=== PATIENT | male | born 1950 | race Caucasian/White ===

== ENCOUNTER → 2019-01-24 15:15 | Outpatient (CLI) | payer MEDICARE, SELFPAY ==
--- NOTE | 2019-01-24 15:22 | CT_ITS ---
CT lung screening EXAM: CT LUNG LOW DOSE WO CONTRAST HISTORY: 50 pack-year smoking history, asymptomatic for lung cancer ITS.REASON: H/O NICOTINE DEPENDENCE ORDERING PHYSICIAN: Armani López MD PATIENT AGE: 68 years COMPARISON: None TECHNIQUE: The exam was performed on a GE Light Speed [address] scanner using 2.90 mGy CTDI. A low dose helical CT CHEST was performed on a multi-detector scanner. All CT scans at the facility use one or more dose reduction, viz: automated exposure control, ma/kV adjustment per patient size (including targeted exams where dose is matched to indication, i.e. head), or iterative reconstruction technique. The LDCT was performed in a facility that meets the criteria for the screening program. Data regarding this exam was submitted to ACR which is an approved registry. The order for this exam indicates that it came as a result of a lung cancer screening counseling shard decision-making visit that included all the elements required of such a visit including smoking cessation. The radiologist interpreting this exam meets the CMS criteria for the LDCT lung cancer screening program. The exam is reported using the Lung-RADS classification scale and reported to the ACR registry. NOTE: This study was performed for the specific purposes of lung cancer screening and is not an alternative to diagnostic chest CT. RADIATION DOSE: CTDI vol(CT dose Index-volume) = 2.90mG DLP (Dose Length Product) = 118.2 mGcm FINDINGS: Centrilobular emphysema with scattered areas of scarring. Calcified nodule right lower lobe medially. Mild coronary artery calcification. Bilateral renal cysts IMPRESSION: 1. Lung RADS Category: 2, benign 2. Other findings: Centrilobular emphysema, coronary artery calcification, RECOMMENDATIONS: 12 month LDCT follow-up
== END ==
PROVIDERS: PCP Family Medicine; Visit Provider Family Medicine
DX: Z12.2 Encounter for screening for malignant neoplasm of respiratory organs (principal); Z87.891 Personal history of nicotine dependence

== ENCOUNTER → 2019-02-19 10:06 | Outpatient (POV) | payer MEDICARE, SELFPAY | PROVIDERS: Visit Provider Dermatology | DX: Z00.00 Encounter for general adult medical examination without abnormal findings (principal) ==

== ENCOUNTER → 2019-04-30 08:56 | Outpatient (POV) | payer MEDICARE, SELFPAY ==
[2019-04-30 11:54] LABS: Ferritin 530 ng/mL (8-388); Free T4 (Free Thyroxine) 0.91 ng/dl (0.76-1.46)
[2019-05-02 08:19] LABS: Thyroid Peroxidase Antibodies <6 IU/mL (0-34); Vitamin B12 639 pg/mL (232-1245); Vitamin D 25 Hydroxy 33.6 ng/mL (30.0-100.0)
[2019-05-02 08:22] LABS: Zinc 116 ug/dL (56-134)
== END ==
PROVIDERS: Visit Provider Dermatology
DX: L65.9 Nonscarring hair loss, unspecified (principal); Z79.899 Other long term (current) drug therapy
CPT/HCPCS: 36415; 82607; 82652; 82728; 84439; 84630; 86376

== ENCOUNTER → 2019-11-20 10:54 | Outpatient (CLI) | payer MEDICARE, SELFPAY ==
--- NOTE | 2019-11-20 10:59 | XR_ITS ---
PROCEDURE: XR KUB CLINICAL INDICATION: RT FLANK PAIN Pain COMPARISON: XR LUMBAR SPINE MIN 4V from 11/20/2019 FINDINGS: Bowel gas pattern is nonspecific. There is a 3 mm calcific density inferior to the right SI joint. This could be due to phleboliths or a ureteral calculus. Faint density is present in the left pelvis which may be due to phleboliths. No obvious renal calculi. IMPRESSION: Right-sided pelvic calcification which could be due to phleboliths or a ureteral calculus Dictated by: Odilon Orta MD 11/20/2019 13:57 Electronically signed by Odilon Orta MD in [place] 11/20/2019 13:57
--- NOTE | 2019-11-20 10:59 | XR_ITS ---
PROCEDURE: XR LUMBAR SPINE MIN 4V CLINICAL INDICATION: LBP WITH LT SCIATICA Low back pain with left-sided sciatica COMPARISON: No exams were available for comparison FINDINGS: Normal alignment. No fracture or dislocation. There is slight decrease in the disc space L2-S1 with small anterior osteophytes consistent mild degenerative disc disease. IMPRESSION: Mild degenerative changes, no acute finding. Dictated by: Odilon Orta MD 11/20/2019 13:51 Electronically signed by Odilon Orta MD in [facility] 11/20/2019 13:51
== END ==
PROVIDERS: PCP Family Medicine; Visit Provider Family Medicine
DX: R10.9 Unspecified abdominal pain (principal); R31.29 Other microscopic hematuria; M54.42 Lumbago with sciatica, left side
CPT/HCPCS: 72110; 74018

== ENCOUNTER → 2020-01-13 07:39 | Outpatient (CLI) | payer MEDICARE, SELFPAY ==
--- NOTE | 2020-01-13 07:43 | CT_ITS ---
PROCEDURE: CT ABDOMEN PELVIS WO CON CLINICAL INDICATION: RT FLANK PAIN, MICRO HEMATURIA The COMPARISON: LUNGSCREEN CT lung screening from 01/24/2019 TECHNIQUE: Axial images obtained with sagittal and coronal reformats. All CT scans at the facility use one or more dose reduction, viz: automated exposure control, ma/kV adjustment per patient size (including targeted exams where dose is matched to indication, i.e. head), or iterative reconstruction technique. FINDINGS: LOWER THORAX: Centrilobular emphysematous changes are present in the lung bases with some scarring. Calcified granuloma is present in the right lung base. ABDOMEN & PELVIS: Liver, gallbladder, adrenal glands, and pancreas have an unremarkable appearance. There is an indeterminate area of decreased attenuation within the anterior and superior aspect of the spleen area this measures approximately 1.8 cm and could represent splenic cyst. Stability may be confirmed with follow-up. The There are numerous bilateral renal cysts. The largest cyst is in the upper pole of the left kidney lobular in nature measuring 6.7 by 6 cm. There is a small area of increased attenuation within the central aspect of the cyst suggesting a small area of faint calcification at 4.7 mm. Ultrasound is suggested for further evaluation. No renal or ureteral calculi. No hydronephrosis Prostate measures 4.7 cm slightly enlarged. There is mild thickening of the urinary bladder wall. No evidence of appendicitis. There are scattered colonic diverticula with no evidence of diverticulitis. There is some mild stranding of the perinephric renal fat on both sides. This is nonspecific. No acute bony findings. IMPRESSION: 1. Multiple bilateral renal cysts. The largest is in the upper pole on the left at 6.7 cm with suggestion of a small internal septation with possible faint early calcification. Suggest renal ultrasound for further evaluation. 2. Possible splenic cyst. Stability may be confirmed with follow-up and could also be further evaluated with ultrasound Dictated by: Odilon Orta MD 01/13/2020 10:43 Electronically signed by Odilon Orta MD in [place] 01/13/2020 10:43
== END ==
PROVIDERS: PCP Family Medicine; Visit Provider Family Medicine
DX: R10.9 Unspecified abdominal pain (principal); R31.29 Other microscopic hematuria
CPT/HCPCS: 74176

== ENCOUNTER → 2020-01-17 10:58 | Outpatient (CLI) | payer MEDICARE, SELFPAY ==
[2020-01-17 12:23] LABS: Blood Urea Nitrogen 22 mg/dl (9-20); Estimated Glomerular Filt Rate 96 ml/min (>60); GFR (African American) 116 ML/MIN (>60)
== END ==
PROVIDERS: Visit Provider Urology
DX: Z12.5 Encounter for screening for malignant neoplasm of prostate (principal); R31.0 Gross hematuria
CPT/HCPCS: 36415; 82565; 84520; G0103

== ENCOUNTER → 2020-01-22 08:48 | Outpatient (CLI) | payer MEDICARE, SELFPAY ==
--- NOTE | 2020-01-22 08:48 | CT_ITS ---
PROCEDURE: CT ABDOMEN PELVIS WO/W CON CLINICAL INDICATION: gross hematuria Gross hematuria, renal mass, complex renal cyst COMPARISON: LUNGSCREEN CT lung screening from 01/24/2019 CT ABDOMEN PELVIS WO CON from 01/13/2020 TECHNIQUE: IV Contrast: 75ML OPTIRAY 350 Oral Contrast none Axial images obtained with sagittal and coronal reformats. All CT scans at the facility use one or more dose reduction, viz: automated exposure control, ma/kV adjustment per patient size (including targeted exams where dose is matched to indication, i.e. head), or iterative reconstruction technique. FINDINGS: LOWER THORAX: Centrilobular emphysematous changes ABDOMEN & PELVIS: The liver gallbladder and pancreas have an unremarkable appearance. There is some minimal nodularity of the right adrenal gland nonspecific and may be adenomatous in nature. There is a well-circumscribed area of decreased attenuation in the anterior aspect of the spleen measuring 2 cm consistent with a splenic cyst. The spleen is otherwise unremarkable. There are bilateral renal cysts with a simple appearing right renal cyst anteriorly at 3.2 cm. In the upper pole of the left kidney there is a complex appearing cyst which measures 6.7 cm transverse, 5 cm cephalad caudad, and 6.5 cm AP. This does contain a small thin septation with some minimal calcification but no significant enhancement. There is an additional exophytic cyst of the left kidney anterior laterally at 1.8 cm and 1 also anteriorly at 1.7 cm. No intestinal obstruction or free air. No evidence of appendicitis. There is colonic diverticulosis but no evidence of diverticulitis. The prostate is enlarged at 4.5 cm. There is some minimal thickening of the urinary bladder wall which could be due to incomplete distention. No pelvic mass or abnormal fluid collection is evident. There is some calcification of the seminal vesicles with the left seminal vesicle being larger than the right. No acute bony findings. IMPRESSION: 1. There are multiple bilateral renal cyst as detailed above with the largest cyst in the upper pole left kidney containing a thin septation with minimal calcification and no significant enhancement consistent with a Bosniak grade 2 renal cyst which appears benign. Consider six-month follow-up to confirm stability. 2. Splenic cyst. 3. Colonic diverticulosis without diverticulitis Dictated by: Odilon Orta MD 01/23/2020 10:13 Electronically signed by Odilon Orta MD in [place] 01/23/2020 10:13
== END ==
PROVIDERS: PCP Family Medicine; Visit Provider Urology
DX: R31.0 Gross hematuria (principal)
CPT/HCPCS: 74178; Q9967

== ENCOUNTER → 2020-02-15 09:25 | Outpatient (CLI) | payer MEDICARE, SELFPAY ==
[2020-02-16 16:40] LABS: Covid-19 Nasal PCR Sendout UK NOT DETECTED
== END ==
PROVIDERS: Visit Provider Urology
DX: Z03.818 Encounter for observation for suspected exposure to other biological agents ruled out (principal)
CPT/HCPCS: U0003

== ENCOUNTER 2020-02-17 09:03 | Day surgery (SDC) | payer MEDICARE, SELFPAY ==
--- NOTE | 2020-02-12 09:31 | SUR.PREOP ---
02/12/20 @ 7160--PHONE CALL MADE TO PATIENT. PATIENT UNDERSTANDS THAT LAB WORK AND COVID TESTING NEEDS TO BE COMPLETED @ 0900 ON 02/15/20. PATIENT UNDERSTANDS IF LAB WORK AND COVID-19 TESTS ARE NOT COMPLETED BY 12PM ON THAT DATE, THE SURGERY SCHEDULED WILL BE CANCELLED AND RESCHEDULED FOR ANOTHER TIME.
[2020-02-14 13:30] VITALS: BMI 21.1
[2020-02-17] VITALS (13 sets, daily range): BP systolic 83–134; BP diastolic 52–71; PULSE 65–88; RESP 16–19; TEMP 36.3–43; O2SAT 90–98
--- NOTE | 2020-02-17 09:48 | P.PN_ITS ---
[facility] Anesthesia Checklist - Patient Identification Patient Identification: Arm Band - Structural Data Admitted From: Home Planned Operative Procedure/s: TURBT Consent for Planned Operative Procedure(s) Verified: Yes Verified Documents: Surgical Consent, History and Physical - NPO Status Verified Time NPO: 00:00 - Additional verifications Anesthesia Reactions: No Hx Blood Transfusions: No Blood Transfusion Reaction: No - Airway Assessment C-Spine Mobility Assessed: Yes (mp2) TMJ Mobility Assessed: Yes Dentition: Poor Dentition - Neurological Assessment Level of Consciousness: Awake, Alert - Anesthesia Plan Anesthesia Risk discussed: Yes Anesthesia Plan: Verified ASA Class: II Anesthesia Type: General [facility] History I have reviewed the patient's past medical history: Yes Medical History: Reports:: Hypertension Denies:: Cancer, Diabetes Mellitus Type 1, Diabetes Mellitus Type 2, Internal Pacemaker, Lung Disease, MRSA, Seizures *Have you ever received a pneumonia vaccine?: No *Have you received a flu vaccine this season?: Yes Other Medical History: Reports: Arthritis, Other. Denies: Blood Transfusion Reaction Anesthesia experience/problems:: nac Other Surgeries: Yes: Colonoscopy, Other. No: Pacemaker Amputation: No Fractures: No - *Social History Educational Level: Attended College Smoking Status: Current every day smoker Tobacco Type: cigarettes # Packs/Day (cigarettes): 1 #Yrs smoked (if former smoker): 30 Alcohol Intake: never Alcohol Intake Frequency:: holidays/special occasions only Substance Use Type: denies use, other *Occupational Status:: retired Housing: house Household Members: spouse *Travel in the last 8 weeks: None Family Hx:: Diabetes, Heart Attack
--- NOTE | 2020-02-17 10:42 | P.PN_ITS ---
[facility] Anesthesia Record Part I Intake, IV Amount: 1,000 Estimated blood loss (mL): 0 Urine output (mL): 0 Blood Pressure: 83/52 SaO2: 92 Pulse Rate: 80 Respiratory Rate: 16 Temperature: 97.8 F Patient is:: Drowsy, Stable Stable to PACU at:: 10:35
--- NOTE | 2020-02-17 11:06 | SUR.PHASEI ---
1035: pt to PACU with oral sedate with airway 1050: oral airway removed per/by R D ENGINEER
--- NOTE | 2020-02-17 12:20 | HMH.ANESII ---
[facility] Anesthesia Record Part II Discharge Time: 11:16 Destination: Surgical Day Care (OP Surgery) PACU nurse assessment reviewed?: Yes Patient Condition:: Good Anesthesia Complications:: None Swallowing reflex intact?: Yes Cyanosis?: No Blood Pressure: 110/56 Pulse Rate: 74 Temperature: 97.4 F Mental Status: Alert & Oriented Pain level:: 0 Nausea and/or vomitting:: None Intake, IV Amount: 0
--- NOTE | 2020-02-17 12:55 | P.OP_ITS ---
Date of procedure: 02/17/20 Pre-op Diagnosis:: Bladder tumor Post-op Diagnosis:: 2 cm bladder tumor at the left side of the bladder neck Procedure performed:: Transurethral resection of bladder tumor, 2 cm Surgeon:: Diego Arthur MD NURSE PRACTITIONER MANAGER:: Oswald Combs Anesthesia: GETA Estimated blood loss (mL): 2 Clinical Note:: 9-year-old white male with history of gross hematuria noted to have a papillary lesion at the left side of the bladder neck. Operative findings:: Papillary lesion at the bladder neck noted at 1:00 to 4:00. Operative note:: Patient taken to the operating room after informed consent was obtained. Was placed on the operating table in a supine position and general anesthesia administered. Preoperative antibiotics and sequential compression devices were placed. He was then placed into the dorsal lithotomy position prepped draped in the standard surgical fashion. The [place] cystoscope passed into the urethra and into the bladder without difficulty. The bladder was examined in a systematic fashion. Again of note was the papillary findings at the bladder neck. These appear to be contained just to the bladder neck and not noted anywhere else. Cystoscope removed and our [place] resectoscope sheath passed into the urethra atraumatically. The resectoscope loop was then used to resect the papillary tumor from the bladder neck. Specimen was passed off for analysis and a bed of the tumor was fulgurated with the loop. Scope removed and [place] Bruner catheter was anchored. Patient tolerated procedure well there are no complications. He was discharged to recovery in stable condition. I will send him home with his Bruner catheter due to the possible bleeding and/or swelling from the surgery at the bladder neck. Condition: stable Disposition: same day Specimens:: Bladder tumor Complications:: None
== END 2020-02-17 12:00 | disposition home or self-care (01) ==
LOC: OR 09:05
PROVIDERS: PCP Family Medicine; Visit Provider Urology
PROC: 0TBB8ZZ Excision of Bladder, Via Natural or Artificial Opening Endoscopic (ICD-10-PCS; principal; 2020-02-17 10:30)
DX: C67.5 Malignant neoplasm of bladder neck (principal); I10 Essential (primary) hypertension; Z72.0 Tobacco use; Z88.0 Allergy status to penicillin
CPT/HCPCS: 52234; 88307; 96374; J1956; J2405

== ENCOUNTER 2020-02-18 16:38 | Emergency (ER) | payer MEDICARE, SELFPAY ==
[2020-02-18 16:39] VITALS: BP 119/80; PULSE 88; RESP 20; TEMP 37; O2SAT 95; BMI 21.7
--- NOTE | 2020-02-18 17:41 | PC.NURSE ---
[employer] WORK[employer] PAGING DR CHIN AT THIS TIME
--- NOTE | 2020-02-18 18:05 | HMH.EDUROGM ---
ED Disposition Clinical Impression: Urethritis, Prostatitis, Acute retention of urine Disposition: Home, Self-Care Condition on Discharge: Good Instructions: DI for Urinary Tract Infection (UTI), DI for Urinary Tract Infection in Children Additional Instructions: Follow-up with Dr. Snell at your regular appointment on . Prescriptions: Hyoscyamine Sulfate 0.125 mg PO QID 10 Days #30 tab Prescription Printed Referrals: Armani López MD [Primary Care Provider] - - Critical Care Critical Care Time: No Attestation: On 02/18/20, the high probability of a clinically significant, sudden or life threatening deterioration of the following system(s) required my full and direct attention, intervention and personal management. The time I documented below is in addition to time spent performing reported procedures but includes the following listed in this critical care notation. Medical Decision Making - Kenny Inquiry Pt receiving controlled substance: No Vital Signs: 02/18/20 16:39 Temperature 98.6 F Temperature Source Oral Pulse Rate [Right] 88 Respiratory Rate 20 Blood Pressure [Right Arm] 119/80 Blood Pressure Mean [Right Arm] 93 02 Sat by Pulse Oximetry 95 - Lab Data Lab results reviewed: Yes: I reviewed the patient's lab results. Orders (Tests/Meds): ED MEDICATIONS Generic Name Dose Route Start Last Admin Trade Name Freq PRN Reason Stop Dose Admin Hyoscyamine 0.125 mg 02/18/20 18:12 Levsin 0.125mg Tablet PO 02/18/20 18:13 ONCE ONE Discontinued Medications Generic Name Dose Route Start Last Admin Trade Name Freq PRN Reason Stop Dose Admin Dicyclomine HCl 20 mg 02/18/20 16:51 02/18/20 16:56 Dicyclomine 20mg/2ml Vial IM 02/18/20 16:52 20 mg ONCE ONE Administration Morphine Sulfate 4 mg 02/18/20 16:52 02/18/20 16:56 Morphine 4mg/Ml Syringe IM 02/18/20 16:53 4 mg ONCE ONE Administration Tamsulosin HCl 0.8 mg 02/18/20 21:00 Flomax 0.4mg Capsule PO 03/19/20 20:59 HS ROMI Tamsulosin HCl 0.8 mg 02/18/20 17:00 02/18/20 17:00 Flomax 0.4mg Capsule PO 02/18/20 17:01 0.8 mg HS ONE Administration Male Urogenital HPI - General Chief complaint: Urogenital-Male Stated complaint: Problen with Cath Time Seen by Provider: 02/18/20 18:05 Mode of Arrival: Ambulatory Source of Information: Patient Limitations: No Limitations Description of Symptoms (Recalled from ER Triage Doc. by RN): Bruner placed yesterday per dr snell after removal of bladder cyst and pt has increased pain and leaking around his urethra - History of Present Illness HPI Narrative: 61-year-old male presents the ED after having a biopsy of his bladder yesterday and his main complaint is a lot of suprapubic pain and blood in his catheter. He is also complaining of leakage around the catheter. I spoke to Dr. López his primary care provider and he wanted to get him evaluated here in the ED because he did not have a replacement catheter put in in the office. Here in the ED we did remove the catheter and we were able to get another catheter placed and patient is resting comfortably after some pain medication and also some hyoscyamine, Flomax and morphine. Otherwise patient has no other complaints. - Related Data Home Medications Medication Instructions Recorded Confirmed Aspirin [Aspirin 81mg EC Tab] 81 mg PO DAILY 04/15/19 02/14/20 calcium polycarbophiL [Fiber Tabs] 625 mg PO DAILY 04/15/19 02/14/20 Finasteride 1 mg PO DAILY 02/14/20 02/14/20 Tamsulosin HCl 0.4 mg PO DAILY 02/14/20 02/14/20 Previous Rx's Medication Instructions Recorded Hyoscyamine Sulfate 0.125 mg PO QID 10 Days #30 tab 02/18/20 Allergies Allergy/AdvReac Type Severity Reaction Status Date / Time Penicillins Allergy Unknown Verified 02/13/20 12:52 [facility] History - Hepatitis A Screen Drug use history?: No High risk sexual behaviors?: No History of sexually transmitted i
[2020-02-18 18:30] VITALS: BP 131/83; PULSE 69; RESP 18; TEMP 36.8; O2SAT 97
== END 2020-02-18 18:46 | disposition home or self-care (01) ==
PROVIDERS: Emergency Provider Family Medicine; PCP Family Medicine
DX: N34.2 Other urethritis (principal); N41.9 Inflammatory disease of prostate, unspecified; N32.89 Other specified disorders of bladder; I10 Essential (primary) hypertension; Z88.0 Allergy status to penicillin; F17.210 Nicotine dependence, cigarettes, uncomplicated; Z79.899 Other long term (current) drug therapy
CPT/HCPCS: 96365; 96372; 96375; 99282

== ENCOUNTER → 2020-04-25 09:52 | Outpatient (CLI) | payer MEDICARE, SELFPAY ==
[2020-04-25 11:12] LABS: Chloride 102 mmol/L (98-107); Potassium 4.9 mmoL/L (3.5-5.1); Sodium 141 mmol/L (136-145)
[2020-04-25 11:15] LABS: Blood Urea Nitrogen 18 mg/dl (9-20); Estimated Glomerular Filt Rate 84 ml/min (>60); GFR (African American) 102 ML/MIN (>60)
[2020-04-25 11:16] LABS: Anion Gap 11.9 mEq/L (5-15); Calcium 9.7 mg/dl (8.4-10.2); Carbon Dioxide 32 mmol/L (22.0-30.0); Glucose 87 mg/dl (74-100)
== END ==
PROVIDERS: Visit Provider Family Medicine
DX: I10 Essential (primary) hypertension (principal)
CPT/HCPCS: 36415; 80048

== ENCOUNTER → 2020-09-19 10:17 | Outpatient (CLI) | payer MEDICARE, SELFPAY ==
[2020-09-19 13:09] LABS: Coronavirus 19 IgG Antibody Negative (Negative); Coronavirus 19 IgM Antibody Negative (Negative)
== END ==
PROVIDERS: Visit Provider Urology
DX: Z85.51 Personal history of malignant neoplasm of bladder (principal); Z01.818 Encounter for other preprocedural examination; Z03.818 Encounter for observation for suspected exposure to other biological agents ruled out; R31.9 Hematuria, unspecified
CPT/HCPCS: 36415; 86328

== ENCOUNTER 2020-09-21 08:26 | Day surgery (SDC) | payer MEDICARE, SELFPAY ==
[2020-09-18 15:17] VITALS: BMI 20.3
[2020-09-21 08:42] VITALS: BP 123/88; PULSE 87; RESP 16; TEMP 36.4; O2SAT 94
[2020-09-21 09:23] VITALS: BP 139/77; PULSE 72; RESP 16; TEMP 36.5; O2SAT 94
--- NOTE | 2020-09-21 12:29 | HMH.OPNOTE ---
Date of procedure: 09/21/20 Pre-op Diagnosis:: History of bladder cancer Post-op Diagnosis:: History of bladder cancer Procedure performed:: Surveillance cystoscopy Surgeon:: Diego Arthur MD Anesthesia: local Estimated blood loss (mL): 0 Clinical Note:: Patient is a 70-year-old white male with a history of bladder cancer status post resection back in March 2020. Due to the paul pandemic he did not come in for his 3-month follow-up in June but does follow-up today. He does state gross hematuria for 1-1/2 days few weeks ago after some strenuous activity. He does have a history of BPH. He states that the hematuria was noted at the beginning of his stream and not throughout the stream. Operative findings:: No evidence of recurrent bladder tumor. Operative note:: Patient taken to the cystoscopy room after informed consent was obtained. On the stretcher he was prepped and draped in the standard surgical fashion and 2% lidocaine placed into the urethra and the urethra clamped for 5 minutes. After 5 minutes the clamp was removed and the flexible cystoscope inserted into the urethral meatus and passed to the prostatic urethra without difficulty. Prostatic urethra showed moderate hyperplasia but no evidence of any bleeding nidus. The bladder was entered and examined in a systematic fashion. There is no evidence of recurrent bladder tumors. Small reddish lesion was noted on the right side of the bladder wall. Some mild trabeculation was noted but no stones, diverticula or cellules are present. The ureteral orifices in their normal anatomic position. Scope was retroflexed showing a moderate sized median lobe. Scope then removed. Patient tolerated procedure well there are no complications. We will see him back in 3 months for surveillance cystoscopy. Condition: stable Disposition: same day Specimens:: None Complications:: None
== END 2020-09-21 09:40 | disposition home or self-care (01) ==
LOC: OUTP 08:28
PROVIDERS: PCP Family Medicine; Visit Provider Urology
DX: Z08 Encounter for follow-up examination after completed treatment for malignant neoplasm (principal); N32.9 Bladder disorder, unspecified; Z90.6 Acquired absence of other parts of urinary tract; Z85.51 Personal history of malignant neoplasm of bladder; I10 Essential (primary) hypertension; Z87.442 Personal history of urinary calculi; N40.0 Benign prostatic hyperplasia without lower urinary tract symptoms; Z83.3 Family history of diabetes mellitus; Z82.49 Family history of ischemic heart disease and other diseases of the circulatory system; Z79.82 Long term (current) use of aspirin; Z79.899 Other long term (current) drug therapy
CPT/HCPCS: 52000

== ENCOUNTER → 2020-12-07 09:10 | Outpatient (CLI) | payer MEDICARE, SELFPAY ==
--- NOTE | 2020-12-07 09:15 | US_ITS ---
PROCEDURE: US KIDNEY CLINICAL INDICATION: RENAL CYST, CYST OF SPLEEN COMPARISON: CT CT ABDOMEN PELVIS WO/W CON from 01/22/2020 FINDINGS: The right kidney is [id number]. No hydronephrosis, cortical thinning, or perinephric fluid collection is evident.. There are 3 right renal cysts the largest in the upper pole measuring 3.3 cm. The left kidney is [id number]. No hydronephrosis, cortical thinning, or renal mass or perinephric fluid collection is evident. There is a septated 6 cm cyst involving the left kidney upper pole and a smaller exophytic cyst of the mid aspect of the left kidney anteriorly 17 mm There is a small cystic area along the anterior aspect of the spleen corresponding to the CT abnormality. This measures approximately 12 mm IMPRESSION: Bilateral renal cyst and small left splenic cyst corresponding to the CT abnormalities of 01/22/2020. Dictated by: Odilon Orta MD 12/07/2020 16:31 Odilon Orta MD in [place] 12/07/2020 16:33
== END ==
PROVIDERS: PCP Family Medicine; Visit Provider Family Medicine
DX: D73.4 Cyst of spleen (principal); N28.1 Cyst of kidney, acquired
CPT/HCPCS: 76770

== ENCOUNTER → 2020-12-18 15:56 | Outpatient (CLI) | payer MEDICARE, SELFPAY ==
[2020-12-18 17:37] LABS: Coronavirus 19 IgG Antibody Negative (Negative); Coronavirus 19 IgM Antibody Negative (Negative)
== END ==
PROVIDERS: Visit Provider Urology
DX: C67.9 Malignant neoplasm of bladder, unspecified (principal); Z01.818 Encounter for other preprocedural examination; Z20.822 Contact with and (suspected) exposure to COVID-19
CPT/HCPCS: 36415; 86328

== ENCOUNTER 2020-12-21 08:18 | Day surgery (SDC) | payer MEDICARE, SELFPAY ==
[2020-12-17 12:32] VITALS: BMI 20.3
[2020-12-21 08:34] VITALS: BP 185/89; PULSE 71; RESP 18; TEMP 36.6; O2SAT 97
[2020-12-21 09:30] VITALS: BP 152/96; PULSE 68; RESP 20; TEMP 36.6; O2SAT 96
--- NOTE | 2020-12-21 11:02 | HMH.OPNOTE ---
Date of procedure: 12/21/20 Pre-op Diagnosis:: History of bladder cancer Post-op Diagnosis:: Recurrent bladder cancer Procedure performed:: Surveillance cystoscopy Surgeon:: Diego Arthur MD Anesthesia: local Estimated blood loss (mL): 0 Clinical Note:: Patient is a 70-year-old white male with history of bladder cancer status post TURBT a year ago February. He returns for his 3-month cystoscopy and states he has had some episodes of gross hematuria over the last couple of weeks. Operative findings:: A 2 cm bladder tumor is noted over the right lateral bladder wall. No other mucosal changes were present. There was some mild to moderate trabeculation present. Operative note:: Patient taken to the cystoscopy suite after informed consent was obtained. On the stretcher he was prepped and draped in the standard surgical fashion and 2% lidocaine placed into the urethra and the urethra clamped for 5 minutes. Clamp then removed and the flexible cystoscope was placed into the urethral meatus. Passed to the prostatic urethra which showed some moderate hyperplasia but no bleeding nidus. The bladder was entered and examined in a systematic fashion. There was a 2 cm papillary bladder tumor noted over the right lateral bladder wall. No other bladder tumors were noted. There was some moderate trabeculation noted in the floor the bladder. The ureteral orifices in their normal anatomic position with clear efflux of urine. Bladder neck is within normal limits. Scope removed patient tolerated the procedure well. We discussed the findings today and discussed the need for further TURBT. We will set this up at his earliest convenience. Condition: stable Disposition: same day Specimens:: None Complications:: None
== END 2020-12-21 09:45 | disposition home or self-care (01) ==
LOC: OUTP 08:20
PROVIDERS: PCP Family Medicine; Visit Provider Urology
PROC: (CPT 52000; principal; 2020-12-21 09:00)
DX: D49.4 Neoplasm of unspecified behavior of bladder (principal); N32.89 Other specified disorders of bladder; Z08 Encounter for follow-up examination after completed treatment for malignant neoplasm; Z85.51 Personal history of malignant neoplasm of bladder; I10 Essential (primary) hypertension; Z87.442 Personal history of urinary calculi; Z88.0 Allergy status to penicillin
CPT/HCPCS: 52000

== ENCOUNTER → 2021-01-08 10:30 | Outpatient (CLI) | payer MEDICARE, SELFPAY ==
[2021-01-08 11:04] LABS: Basophils % 0.3 % (0.1-2.0); Eosinophils # 0.3 K/mm3 (0.0-0.4); Eosinophils % 3.8 % (0.1-12.0); Hematocrit 48.6 % (42.0-52.0); Hemoglobin 15.5 g/dL (14.1-18.0); Lymphocytes # 2.3 K/mm3 (0.7-4.5); Lymphocytes % 29.1 % (10-50); Mean Corpuscular Hemoglobin 32.4 pg (27.0-31.2); Mean Corpuscular Volume 101.2 fl (80-94); Mean Platelet Volume 8.1 fl (7.4-10.4); Monocytes # 0.5 K/mm3 (0.1-1.0); Monocytes % 6.8 % (1.7-9.3); Neutrophils # 4.7 K/mm3 (1.8-7.8); Platelet Count 243 K/mm3 (142-424); Red Cell Distribution Width 13.1 % (11.5-17.5); White Blood Count 7.9 K/mm3 (4.8-10.8)
[2021-01-08 11:56] LABS: Anion Gap 11.2 mEq/L (5-15); Blood Urea Nitrogen 14 mg/dl (9-20); Calcium 9.7 mg/dl (8.4-10.2); Carbon Dioxide 30 mmol/L (22.0-30.0); Chloride 104 mmol/L (98-107); Estimated Glomerular Filt Rate 84 ml/min (>60); GFR (African American) 101 ML/MIN (>60); Glucose 122 mg/dl (74-100); Potassium 4.2 mmoL/L (3.5-5.1); Sodium 141 mmol/L (136-145)
[2021-01-08 12:29] LABS: Coronavirus 19 IgG Antibody Negative (Negative); Coronavirus 19 IgM Antibody Negative (Negative)
== END ==
PROVIDERS: Visit Provider Urology
DX: C67.9 Malignant neoplasm of bladder, unspecified (principal)
CPT/HCPCS: 36415; 80048; 85025; 86328

== ENCOUNTER 2021-01-11 09:04 | Day surgery (SDC) | payer MEDICARE, SELFPAY ==
[2021-01-05 09:59] VITALS: BMI 21.1
[2021-01-11] VITALS (10 sets, daily range): BP systolic 92–147; BP diastolic 49–74; PULSE 72–88; RESP 12–20; TEMP 36.2–42.7; O2SAT 92–98
--- NOTE | 2021-01-11 11:34 | P.PN_ITS ---
[facility] Anesthesia Checklist - Structural Data Admitted From: Home Planned Operative Procedure/s: turbt Consent for Planned Operative Procedure(s) Verified: Yes - Additional verifications Anesthesia Reactions: No Hx Blood Transfusions: No Blood Transfusion Reaction: No - Airway Assessment C-Spine Mobility Assessed: Yes TMJ Mobility Assessed: Yes Dentition: Poor Dentition - Neurological Assessment Level of Consciousness: Awake, Alert, Appropriate - Anesthesia Plan Anesthesia Risk discussed: Yes Anesthesia Plan: Verified ASA Class: II Anesthesia Type: General [facility] History I have reviewed the patient's past medical history: Yes Medical History: Reports:: Cancer (bladder), Hypertension, Kidney Stones Denies:: Diabetes Mellitus Type 1, Diabetes Mellitus Type 2, Internal Pacemaker, Lung Disease, MRSA, Seizures *Have you ever received a pneumonia vaccine?: No *Have you received a flu vaccine this season?: No Other Medical History: Reports: Arthritis, Other. Denies: Blood Transfusion Reaction Anesthesia experience/problems:: none Other Surgeries: Yes: No Previous Surgery, Colonoscopy, Other. No: Pacemaker Amputation: No Fractures: No - *Social History Last grade of school completed: Some college Smoking Status: Current every day smoker Tobacco Type: cigarettes # Packs/Day (cigarettes): 1 #Yrs smoked (if former smoker): 30 Alcohol Intake: current Alcohol Intake Frequency:: holidays/special occasions only Substance Use Type: denies use, other *Occupational Status:: retired Housing: house Household Members: spouse *Travel in the last 8 weeks: None Family Hx:: Diabetes, Heart Attack
--- NOTE | 2021-01-11 11:35 | HMH.ANESI ---
[facility] Anesthesia Record Part I Intake, IV Amount: 1,200 Estimated blood loss (mL): 0 Urine output (mL): 0 Blood Pressure: 92/62 SaO2: 98 Pulse Rate: 84 Respiratory Rate: 12 Temperature: 97.7 F Patient is:: Awake, Stable Stable to PACU at:: 11:30
--- NOTE | 2021-01-11 17:47 | HMH.OPNOTE ---
Date of procedure: 01/11/21 Pre-op Diagnosis:: Recurrent bladder cancer Post-op Diagnosis:: Same Procedure performed:: TURBT of 2 cm tumor Surgeon:: Diego Arthur MD STEEL POURER:: Lobo Tadeo Anesthesia: LMA Estimated blood loss (mL): 0 Clinical Note:: Patient is a 70-year-old white male with history of bladder cancer status post initial TURBT February 2020. Recent cystoscopy showed a recurrence on the right side of his bladder and he presents for management. Operative findings:: 2 cm bladder tumor in the right lateral wall at 3:00 near the bladder neck. Operative note:: Patient taken to the operating room after informed consent was obtained. Was placed on the operating table in the supine position and general anesthesia administered. Preoperative antibiotics and sequential compression devices placed. Was placed into the dorsolithotomy position prepped draped in the standard surgical fashion. 22 Romeo passed into the urethra and into the bladder. The bladder was examined in a systematic fashion. Again of note was the 2 cm tumor on the right lateral wall at 9 o'clock position near the bladder neck. The cystoscope removed and the 26 Kinyarwanda resectoscope sheath with cylinder press operator passed into the bladder. The resectoscope and passed through the sheath and the tumor was resected in its entirety and the base of the tumor was fulgurated. The tumor fragments were irrigated free and sent off for analysis. The scope then removed and a 20 Kinyarwanda two-way Bruner placed without difficulty. Patient tolerated the procedure well there are no complications. Voiding trial to be performed in the recovery room prior to discharge. Condition: stable Disposition: PACU Specimens:: Bladder tumor Complications:: None
--- NOTE | 2021-01-12 12:51 | HMH.ANESII ---
[facility] Anesthesia Record Part II Discharge Time: 11:57 Destination: Surgical Day Care (OP Surgery) PACU nurse assessment reviewed?: Yes Patient Condition:: Good Anesthesia Complications:: None Swallowing reflex intact?: Yes Cyanosis?: No Blood Pressure: 111/70 Pulse Rate: 84 Temperature: 97.5 F Mental Status: Alert & Oriented Pain level:: 0 Nausea and/or vomitting:: None Intake, IV Amount: 500
[2021-01-12 12:52] VITALS: BP 111/70; PULSE 84; TEMP 36.4
== END 2021-01-11 12:40 | disposition home or self-care (01) ==
LOC: OR 09:06
PROVIDERS: PCP Family Medicine; Visit Provider Urology
PROC: 0TBB8ZZ Excision of Bladder, Via Natural or Artificial Opening Endoscopic (ICD-10-PCS; CPT 52234; principal; 2021-01-11 10:45)
DX: C67.2 Malignant neoplasm of lateral wall of bladder (principal); Z85.51 Personal history of malignant neoplasm of bladder; I10 Essential (primary) hypertension; Z87.442 Personal history of urinary calculi; M19.90 Unspecified osteoarthritis, unspecified site; Z72.0 Tobacco use; Z83.3 Family history of diabetes mellitus; Z82.3 Family history of stroke; Z79.82 Long term (current) use of aspirin; Z79.899 Other long term (current) drug therapy; Z88.0 Allergy status to penicillin
CPT/HCPCS: 52234; 88307; 96374; J2405

== ENCOUNTER → 2021-01-21 10:11 | Outpatient (CLI) | payer MEDICARE, SELFPAY | PROVIDERS: Visit Provider Urology | DX: N34.2 Other urethritis (principal) | CPT/HCPCS: 87086; 87088; 87186 ==

== ENCOUNTER → 2021-04-12 16:06 | Outpatient (CLI) | payer MEDICARE, SELFPAY | PROVIDERS: Visit Provider Surgery | DX: Z01.812 Encounter for preprocedural laboratory examination (principal); Z87.19 Personal history of other diseases of the digestive system; Z20.822 Contact with and (suspected) exposure to COVID-19; F17.210 Nicotine dependence, cigarettes, uncomplicated; Z12.11 Encounter for screening for malignant neoplasm of colon | CPT/HCPCS: U0003 ==

== ENCOUNTER 2021-04-14 08:27 | Day surgery (SDC) | payer MEDICARE, SELFPAY ==
[2021-04-07 12:24] VITALS: BMI 21.1
[2021-04-14] VITALS (9 sets, daily range): BP systolic 87–143; BP diastolic 57–77; PULSE 67–95; RESP 18; TEMP 36.6; O2SAT 95–97
--- NOTE | 2021-04-14 09:59 | P.PN_ITS ---
[facility] Anesthesia Checklist - Patient Identification Patient Identification: Arm Band - Structural Data Admitted From: Home Planned Operative Procedure/s: Colonoscopy Consent for Planned Operative Procedure(s) Verified: Yes Verified Documents: Surgical Consent, History and Physical - NPO Status Verified Time NPO: 00:00 - Additional verifications Anesthesia Reactions: No Hx Blood Transfusions: No Blood Transfusion Reaction: No - Airway Assessment C-Spine Mobility Assessed: Yes TMJ Mobility Assessed: Yes Dentition: Good Dentition - Neurological Assessment Level of Consciousness: Awake, Alert - Anesthesia Plan Anesthesia Risk discussed: Yes Anesthesia Plan: Verified ASA Class: II Anesthesia Type: MAC [facility] History Medical History: Reports:: Cancer (bladder), Hypertension, Kidney Stones Denies:: Diabetes Mellitus Type 1, Diabetes Mellitus Type 2, Internal Pacemaker, Lung Disease, MRSA, Seizures *Have you ever received a pneumonia vaccine?: No *Have you received a flu vaccine this season?: No Other Medical History: Reports: Arthritis, Other. Denies: Blood Transfusion Reaction Anesthesia experience/problems:: None Other Surgeries: Yes: No Previous Surgery, Cancer Surgery, Colonoscopy, Other. No: Pacemaker Amputation: No Fractures: No - *Social History Last grade of school completed: Some college Smoking Status: Current every day smoker Tobacco Type: cigarettes # Packs/Day (cigarettes): 1 #Yrs smoked (if former smoker): 30 Alcohol Intake: current Alcohol Intake Frequency:: a few times a week Substance Use Type: denies use, other *Occupational Status:: retired Housing: house Household Members: spouse *Travel in the last 8 weeks: None Family Hx:: Diabetes, Heart Attack
--- NOTE | 2021-04-16 08:26 | HMH.SCOPE ---
- Procedure: Date: 04/14/21 Patient Date of :: 1950 Procedure Performed:: Colonoscopy to terminal ileum with polypectomy Indications:: Patient is a 70-year-old male, smoker, who presents for Follow-up colonoscopy. He underwent screening colonoscopy in April 2019. He did have an ascending colon polyp removed which was hyperplastic polyp . This was somewhat of a surprise as it was a rather large appearing polyp. He had a significantly large polyp in the transverse colon which was removed in its entirety and required maceration of the polyp for retrieval and this returned as a large tubulovillous adenoma. In the sigmoid colon he had a moderate, approximately 10 mm, tubular adenoma. I recommended 18-month follow-up colonoscopy. He does have some postprandial loose stools when eating fatty foods. Of note, patient states that recently he underwent cystoscopy with bladder tumor removal. He is no rectal bleeding. There is no known family history of colon cancer. Performing Provider:: Julian Martinez MD Referring Provider:: Armani López MD Sedation:: MAC sedation Procedure:: Patient was taken to endoscopy procedure room. He was positioned in a lateral decubitus position. Adequate intravenous sedation was achieved with anesthesia titration of propofol. Digital examination was performed. Variable stiffness Olympus colonoscope was inserted via the anus. It was advanced to the cecum. Colonic preparation was good and visualization was good. Colonoscope was advanced a short distance into the terminal ileum which appeared grossly normal. Colonoscope was withdrawn through the colon with careful surveillance. In the descending colon there was a adenomatous appearing polyp removed with cold cutting snare. Just distal to this there was a tiny diminutive polyp removed with cold biopsy forceps. In the sigmoid colon there was a possible hyperplastic polyp removed with cold biopsy forceps. In the rectosigmoid region there were multiple hyperplastic appearing polyps which were sampled with removal using cold biopsy forceps. Retroflexion within the rectum revealed no evidence of any pathologic internal hemorrhoids. Colonoscope was withdrawn. Findings:: Diverticulosis Polyps as noted above Recommendations:: Likely repeat colonoscopy in 3 years given prior history Complications:: None immediately apparent Estimated blood obtained (mL): 3
--- NOTE | 2021-05-07 09:46 | HMH.GSHP ---
HPI HPI: Presents for follow-up colonoscopy. He underwent screening colonoscopy in April 2019. He did have an ascending colon polyp removed which was hyperplastic polyp . This was somewhat of a surprise as it was a rather large appearing polyp. He had a significantly large polyp in the transverse colon which was removed in its entirety and required maceration of the polyp for retrieval and this returned as a large tubulovillous adenoma. In the sigmoid colon he had a moderate, approximately 10 mm, tubular adenoma. I recommended 18-month follow-up colonoscopy. He does have some postprandial loose stools when eating fatty foods. Of note, patient states that recently he underwent cystoscopy with bladder tumor removal. He is no rectal bleeding. There is no known family history of colon cancer. [facility] History I have reviewed the patient's past medical history: Yes Medical History: Reports:: Cancer, Hypertension, Kidney Stones Denies:: Diabetes Mellitus Type 1, Diabetes Mellitus Type 2, Internal Pacemaker, Lung Disease, MRSA, Seizures *Have you ever received a pneumonia vaccine?: Yes *Have you received a flu vaccine this season?: Yes Other Medical History: Reports: Arthritis, Other. Denies: Blood Transfusion Reaction Anesthesia experience/problems:: None Other Surgeries: Yes: No Previous Surgery, Cancer Surgery, Colonoscopy, Other. No: Pacemaker Amputation: No Fractures: No - *Social History Last grade of school completed: Some college Smoking Status: Current every day smoker Tobacco Type: cigarettes # Packs/Day (cigarettes): 1 #Yrs smoked (if former smoker): 30 Alcohol Intake: never Alcohol Intake Frequency:: a few times a week Substance Use Type: denies use, other *Occupational Status:: retired Housing: house Household Members: spouse *Travel in the last 8 weeks: None Family Hx:: No significant family history Review of Systems - Review of Systems Review of systems:: pertinent systems reviewed and negative unless documented below Meds Home Medications Medication Instructions Recorded Confirmed Type Aspirin [Aspirin 81mg EC Tab] 81 mg PO DAILY 04/15/19 05/03/21 History Tamsulosin HCl 0.4 mg PO DAILY 02/14/20 05/03/21 History finasteride 1 mg tablet 5 mg PO DAILY tab 02/08/21 05/03/21 History Allergies Allergy/AdvReac Type Severity Reaction Status Date / Time Penicillins Allergy Unknown Verified 05/03/21 13:38 Exam Vital signs and Labs for Last 24 Hours: Temp Pulse Resp BP Pulse Ox 97.8 F 77 18 126/70 97 04/14/21 10:35 04/14/21 10:45 04/14/21 10:45 04/14/21 10:45 04/14/21 10:45 - Constitutional no acute distress - *Routine HEENT Exam Head: Present: normocephalic Eye: Present: EOMI, PERRL ENT: Present: mucous membranes moist - *Routine Neck Exam Present: supple. Absent: lymphadenopathy - *Routine Respiratory Exam Present: CTA bilaterally - *Routine Cardiovascular Exam Present: RRR - *Routine Abdominal Exam Present: soft, normoactive bowel sounds. Absent: tenderness - *Routine Rectal Exam Rectal:: deferred - *Routine Genitalia Exam Genitalia:: deferred - *Routine Extremities Exam Absent: cyanosis, clubbing, edema - *Routine Skin Exam Present: warm. Absent: rash - *Routine Neurological Exam Present: alert, oriented X3 Assessment and Plan - Assessment and plan all Dx Assessment and Plan for all problems:: Colonoscopy
== END 2021-04-14 10:51 | disposition home or self-care (01) ==
PROVIDERS: PCP Family Medicine; Visit Provider Surgery
PROC: 0DJD8ZZ Inspection of Lower Intestinal Tract, Via Natural or Artificial Opening Endoscopic (ICD-10-PCS; principal; 2021-04-14 09:30)
DX: D12.4 Benign neoplasm of descending colon (principal); Z86.010 Personal history of colon polyps; D12.5 Benign neoplasm of sigmoid colon; K57.30 Diverticulosis of large intestine without perforation or abscess without bleeding; I10 Essential (primary) hypertension; F17.210 Nicotine dependence, cigarettes, uncomplicated
CPT/HCPCS: 45380; 88305; J2704

== ENCOUNTER → 2021-04-17 11:08 | Outpatient (CLI) | payer MEDICARE, SELFPAY | PROVIDERS: Visit Provider Urology | DX: Z01.812 Encounter for preprocedural laboratory examination (principal); Z20.822 Contact with and (suspected) exposure to COVID-19 | CPT/HCPCS: U0003 ==

== ENCOUNTER 2021-04-19 08:31 | Day surgery (SDC) | payer MEDICARE, SELFPAY ==
--- NOTE | 2021-04-14 09:00 | P.HP_ITS ---
HPI HPI: Presents to the office to schedule follow-up colonoscopy. He underwent screening colonoscopy in April 2019. He did have an ascending colon polyp removed which was hyperplastic polyp . This was somewhat of a surprise as it was a rather large appearing polyp. He had a significantly large polyp in the transverse colon which was removed in its entirety and required maceration of the polyp for retrieval and this returned as a large tubulovillous adenoma. In the sigmoid colon he had a moderate, approximately 10 mm, tubular adenoma. I recommended 18-month follow-up colonoscopy. He does have some postprandial loose stools when eating fatty foods. Of note, patient states that recently he underwent cystoscopy with bladder tumor removal. He is no rectal bleeding. There is no known family history of colon cancer. [facility] History I have reviewed the patient's past medical history: Yes Medical History: Reports:: Cancer (bladder), Hypertension, Kidney Stones Denies:: Diabetes Mellitus Type 1, Diabetes Mellitus Type 2, Internal Pacemaker, Lung Disease, MRSA, Seizures *Have you ever received a pneumonia vaccine?: No *Have you received a flu vaccine this season?: No Other Medical History: Reports: Arthritis, Other. Denies: Blood Transfusion Reaction Other Surgeries: Yes: No Previous Surgery, Cancer Surgery, Colonoscopy, Other. No: Pacemaker Amputation: No Fractures: No - *Social History Smoking Status: Current every day smoker Tobacco Type: cigarettes # Packs/Day (cigarettes): 1 #Yrs smoked (if former smoker): 30 Alcohol Intake: current Alcohol Intake Frequency:: a few times a week Substance Use Type: denies use, other *Occupational Status:: retired Housing: house Household Members: spouse *Travel in the last 8 weeks: None Family Hx:: Diabetes, Heart Attack Review of Systems - Review of Systems Review of systems:: pertinent systems reviewed and negative unless documented below Meds Home Medications Medication Instructions Recorded Confirmed Type Aspirin [Aspirin 81mg EC Tab] 81 mg PO DAILY 04/15/19 04/14/21 History Tamsulosin HCl 0.4 mg PO DAILY 02/14/20 04/07/21 History finasteride 1 mg tablet 5 mg PO DAILY tab 02/08/21 04/07/21 History Allergies Allergy/AdvReac Type Severity Reaction Status Date / Time Penicillins Allergy Unknown Verified 04/14/21 08:38 Exam - Constitutional no acute distress - *Routine HEENT Exam Head: Present: normocephalic Eye: Present: EOMI, PERRL ENT: Present: mucous membranes moist - *Routine Neck Exam Present: supple. Absent: lymphadenopathy - *Routine Respiratory Exam Present: CTA bilaterally - *Routine Cardiovascular Exam Present: RRR - *Routine Abdominal Exam Present: soft, normoactive bowel sounds. Absent: tenderness - *Routine Rectal Exam Rectal:: deferred - *Routine Genitalia Exam Genitalia:: deferred - *Routine Extremities Exam Absent: cyanosis, clubbing, edema - *Routine Skin Exam Present: warm. Absent: rash - *Routine Neurological Exam Present: alert, oriented X3 Assessment and Plan - Assessment and plan all Dx Assessment and Plan for all problems:: Colonoscopy
--- NOTE | 2021-04-14 09:46 | HMH.SCOPE ---
- Procedure: Date: 04/14/21 Patient Date of :: 1950 Procedure Performed:: Colonoscopy to terminal ileum with polypectomy Indications:: Patient is a 70-year-old male, smoker, who presents for Follow-up colonoscopy. He underwent screening colonoscopy in April 2019. He did have an ascending colon polyp removed which was hyperplastic polyp . This was somewhat of a surprise as it was a rather large appearing polyp. He had a significantly large polyp in the transverse colon which was removed in its entirety and required maceration of the polyp for retrieval and this returned as a large tubulovillous adenoma. In the sigmoid colon he had a moderate, approximately 10 mm, tubular adenoma. I recommended 18-month follow-up colonoscopy. He does have some postprandial loose stools when eating fatty foods. Of note, patient states that recently he underwent cystoscopy with bladder tumor removal. He is no rectal bleeding. There is no known family history of colon cancer. Performing Provider:: Julian Martinez MD Referring Provider:: None Sedation:: MAC sedation Procedure:: Patient was taken to endoscopy procedure room. He was positioned in a lateral decubitus position. Adequate intravenous sedation was achieved with anesthesia titration of propofol. Digital examination was performed. Variable stiffness Olympus colonoscope was inserted via the anus. It was advanced to the cecum. Colonic preparation was good and visualization was good. Colonoscope was advanced a short distance into the terminal ileum which appeared grossly normal. Colonoscope was withdrawn through the colon with careful surveillance. In the descending colon there was a adenomatous appearing polyp removed with cold cutting snare. Just distal to this there was a tiny diminutive polyp removed with cold biopsy forceps. In the sigmoid colon there was a possible hyperplastic polyp removed with cold biopsy forceps. In the rectosigmoid region there were multiple hyperplastic appearing polyps which were sampled with removal using cold biopsy forceps. Retroflexion within the rectum revealed no evidence of any pathologic internal hemorrhoids. Colonoscope was withdrawn. Findings:: Diverticulosis Polyps as noted above Recommendations:: Likely repeat colonoscopy 3 years given prior history Complications:: None immediately apparent Estimated blood obtained (mL): 3
[2021-04-14 10:23] VITALS: BMI 20.9
[2021-04-19 08:43] VITALS: BP 166/84; PULSE 73; RESP 18; TEMP 36.7; O2SAT 99
[2021-04-19 09:43] VITALS: BP 144/74; PULSE 68; RESP 18; TEMP 36.7; O2SAT 93
[2021-04-19 09:50] VITALS: BP 144/74; PULSE 68; RESP 18; O2SAT 93
--- NOTE | 2021-04-19 10:38 | HMH.OPNOTE ---
Date of procedure: 04/19/21 Pre-op Diagnosis:: History of bladder cancer Post-op Diagnosis:: History of bladder cancer without recurrence today Procedure performed:: Surveillance cystoscopy Surgeon:: Diego Arthur MD Anesthesia: local Estimated blood loss (mL): 0 Clinical Note:: Patient is a 70-year-old white male with a bladder tumor recurrence in January. He underwent TURBT at that time had some postoperative retention. He returns today for routine surveillance cystoscopy. He states he is voiding well and continues on tamsulosin and finasteride. He denies any gross hematuria. Operative findings:: No evidence of bladder tumor recurrence today. There was evidence of BPH. Operative note:: Patient taken to the cystoscopy suite after informed consent was obtained. On the stretcher he was prepped and draped in the standard surgical fashion and 2% lidocaine placed into the urethra and clamped. After 5 minutes the flexible cystoscope introduced into the urethral meatus. Passed to the prostatic urethra which showed some moderate hyperplasia. The bladder was entered and examined in a systematic fashion. There is no evidence of trabeculation, cellules or diverticula. There is no evidence of bladder tumor recurrence. The ureteral orifices in their normal anatomic position with clear efflux of urine. The scope was retroflexed showing a small median lobe. Scope then removed. The patient tolerated the procedure well no complications. We discussed the findings today and we will see him back in 4 months for surveillance cystoscopy. He will continue with the tamsulosin and finasteride. Condition: stable Disposition: same day Specimens:: None Complications:: None
== END 2021-04-19 09:50 | disposition home or self-care (01) ==
LOC: OUTP 08:32
PROVIDERS: PCP Family Medicine; Visit Provider Urology
PROC: (CPT 52000; principal; 2021-04-19 09:30)
DX: D37.5 Neoplasm of uncertain behavior of rectum (principal); Z85.51 Personal history of malignant neoplasm of bladder; Z08 Encounter for follow-up examination after completed treatment for malignant neoplasm; Z86.010 Personal history of colon polyps; Z79.899 Other long term (current) drug therapy
CPT/HCPCS: 45380; 45385; 52000

== ENCOUNTER → 2021-08-20 11:47 | Outpatient (CLI) | payer MEDICARE, SELFPAY | PROVIDERS: Visit Provider Urology | DX: Z01.812 Encounter for preprocedural laboratory examination (principal); Z11.52 Encounter for screening for COVID-19 | CPT/HCPCS: C9803; U0003; U0005 ==

== ENCOUNTER → 2021-08-23 08:14 | Day surgery (SDC) | payer MEDICARE, SELFPAY ==
[2021-08-18 10:34] VITALS: BMI 21.1
[2021-08-23 08:21] VITALS: BP 172/84; PULSE 80; RESP 18; TEMP 37; O2SAT 92
[2021-08-23 10:00] VITALS: BP 157/84; PULSE 68; RESP 18; TEMP 36.1; O2SAT 94
--- NOTE | 2021-08-23 13:05 | HMH.OPNOTE ---
Date of procedure: 08/23/21 Pre-op Diagnosis:: History of bladder cancer Post-op Diagnosis:: History of bladder cancer without evidence of recurrence today. Procedure performed:: Surveillance cystoscopy Surgeon:: Diego Arthur MD Anesthesia: local Estimated blood loss (mL): 0 Clinical Note:: 71-year-old white male with history of bladder cancer. He returns for second surveillance cystoscopy after initial tumor was resected in January 2021. Operative findings:: No evidence of bladder tumor recurrence Operative note:: Patient taken to the operating suite after informed consent was obtained. The stretcher he was prepped and draped in the standard surgical fashion and 2% lidocaine placed into the urethra and the urethra clamped for 5 minutes. For 5 minutes the clamp removed and the flexible cystoscope introduced into the urethral meatus. Passed into the bladder without difficulty and the bladder was examined in a systematic fashion. There is no evidence of recurrent bladder tumors stones, diverticula or trabeculation. The ureteral orifices in their normal anatomic position with clear efflux of urine. The scope was retroflexed showing a small median lobe. Scope then removed the prostatic urethra showed some trilobar hyperplasia and no evidence of strictures. Removed patient tolerated the procedure well no complications. Condition: stable Disposition: same day Specimens:: None Complications:: None
== END ==
PROVIDERS: PCP Family Medicine; Visit Provider Urology
DX: Z08 Encounter for follow-up examination after completed treatment for malignant neoplasm (principal); Z85.51 Personal history of malignant neoplasm of bladder; Z90.6 Acquired absence of other parts of urinary tract; Z72.0 Tobacco use; Z88.0 Allergy status to penicillin; N40.0 Benign prostatic hyperplasia without lower urinary tract symptoms; Z79.899 Other long term (current) drug therapy
CPT/HCPCS: 52000

== ENCOUNTER → 2022-02-18 08:32 | Outpatient (CLI) | payer MEDICARE, SELFPAY | PROVIDERS: Visit Provider Urology | DX: C67.9 Malignant neoplasm of bladder, unspecified (principal); Z01.812 Encounter for preprocedural laboratory examination; Z11.52 Encounter for screening for COVID-19 | CPT/HCPCS: C9803; U0003; U0005 ==

== ENCOUNTER 2022-02-21 08:30 | Day surgery (SDC) | payer MEDICARE, SELFPAY ==
[2022-02-18 10:40] VITALS: BMI 21.1
[2022-02-21 08:53] VITALS: BP 174/87; PULSE 69; RESP 18; TEMP 36.5; O2SAT 97
[2022-02-21 10:02] VITALS: BP 157/75; PULSE 58; RESP 18; TEMP 36.4; O2SAT 95
--- NOTE | 2022-02-21 10:28 | HMH.OPNOTE ---
Date of procedure: 02/21/22 Pre-op Diagnosis:: History of bladder cancer Post-op Diagnosis:: History of bladder cancer without evidence of recurrence today. Procedure performed:: Cystoscopy Surgeon:: Diego Arthur MD Anesthesia: local Estimated blood loss (mL): 0 Clinical Note:: 71-year-old white male with history of bladder cancer. The first occurrence of this cancer was January 2021. Returns today for routine surveillance cystoscopy. He denies any interval gross hematuria. He does continue to smoke cigarettes but has tapered to half a pack per day by report. Operative findings:: No evidence of bladder tumor recurrence. There is evidence of BPH. Operative note:: Patient taken to the endoscopy suite after informed consent was obtained. On the stretcher he was prepped draped in the standard surgical fashion and 2% lidocaine placed into the urethra and the urethra clamped for 5 minutes. After 5 minutes the clamp removed and the flexible cystoscope introduced into the urethral meatus. The past to the prostatic urethra which showed by lobar hyperplasia. The bladder was entered without difficulty and examined in a systematic fashion. There is no evidence of bladder tumor recurrence. There is no evidence of cellules or diverticula. There is some mild trabeculation present. The scope was retroflexed showing a moderate sized median lobe. The ureteral orifices were visualized and clear efflux of urine was noted from each. The scope then removed. We discussed the findings with the patient. He was reassured there is no evidence of bladder tumor recurrence we will see him back in 1 year in follow-up. He is to continue his finasteride and tamsulosin. Condition: stable Disposition: same day Specimens:: None Complications:: None
== END 2022-02-21 10:02 | disposition home or self-care (01) ==
LOC: OUTP 08:32
PROVIDERS: PCP Family Medicine; Visit Provider Urology
DX: Z08 Encounter for follow-up examination after completed treatment for malignant neoplasm (principal); Z85.51 Personal history of malignant neoplasm of bladder; N40.0 Benign prostatic hyperplasia without lower urinary tract symptoms; Z88.0 Allergy status to penicillin; Z79.899 Other long term (current) drug therapy
CPT/HCPCS: 52000

== ENCOUNTER → 2022-07-08 14:17 | Outpatient (CLI) | payer MEDICARE, SELFPAY ==
--- NOTE | 2022-07-08 14:21 | XR_ITS ---
FINAL REPORT CLINICAL HISTORY: HEMATURIA FINDINGS: ABDOMEN SINGLE VIEW There is a nonspecific, nonobstructive bowel gas pattern. No bowel dilation is identified. No radiopaque calcifications are identified. IMPRESSION: No acute process. Reviewed, Interpreted and Dictated by Josh Sarmiento MD Transcribed by Saima Aguirre Authenticated and [facility]
== END ==
PROVIDERS: PCP Family Medicine; Visit Provider Urology
DX: R31.9 Hematuria, unspecified (principal)
CPT/HCPCS: 74018

== ENCOUNTER → 2022-07-20 16:06 | Outpatient (CLI) | payer MEDICARE, SELFPAY ==
[2022-07-20 17:05] LABS: Microscopic, Urine URINE MICROSCOPIC (MICROSCOPIC)
[2022-07-20 17:35] LABS: Basophils # 0.1 K/mm3 (0-0.2); Basophils % 0.7 % (0.1-2.0); Eosinophils # 0.2 K/mm3 (0.0-0.4); Eosinophils % 1.7 % (0.1-12.0); Hematocrit 45.8 % (42.0-52.0); Hemoglobin 14.7 g/dL (14.1-18.0); Lymphocytes # 2.3 K/mm3 (0.7-4.5); Lymphocytes % 16.2 % (10-50); Mean Corpuscular HGB Conc 32.1 g/dL (31.8-35.4); Mean Corpuscular Hemoglobin 32.2 pg (27.0-31.2); Mean Corpuscular Volume 100.3 fl (80-94); Mean Platelet Volume 8.7 fl (7.4-10.4); Monocytes # 1.3 K/mm3 (0.1-1.0); Monocytes % 8.8 % (1.7-9.3); Neutrophils # 10.4 K/mm3 (1.8-7.8); Neutrophils % 72.6 % (37.0-80.0); Platelet Count 308 K/mm3 (142-424); Red Blood Count 4.57 M/mm3 (4.60-6.20); Red Cell Distribution Width 12.9 % (11.5-17.5); White Blood Count 14.3 K/mm3 (4.8-10.8)
[2022-07-20 17:49] LABS: Appearance,Urine CLEAR (Clear); Bilirubin,Urine Negative (Negative); Blood, Urine 3+ (Negative); Color,Urine YELLOW (Yellow); Glucose,Urine (UA) Negative (Negative); Ketones,Urine Negative (Negative); Leukocyte Esterase,Urine Negative (Negative); Nitrate,Urine Negative (Negative); PH,Urine 6.5 (5.0-8.5); Protein,Urine Negative (Negative); Urobilinogen,Urine 0.2 EU/dl (0.2)
[2022-07-20 18:54] LABS: Bacteria,Urine Trace /lpf; RBC,Urine 20-50 #/hpf (0-3); Squamous Epithelial Cell,Urine Occasional #/hpf (0-5)
== END ==
PROVIDERS: PCP Family Medicine; Visit Provider Physician Assistant
DX: Z20.822 Contact with and (suspected) exposure to COVID-19; R82.90 Unspecified abnormal findings in urine
CPT/HCPCS: 36415; 81001; 85025; 87086; C9803; U0003; U0005

== ENCOUNTER → 2022-07-22 13:12 | Outpatient (CLI) | payer MEDICARE, SELFPAY ==
--- NOTE | 2022-07-22 13:14 | CT_ITS ---
FINAL REPORT CLINICAL HISTORY: HEMATURIA,RT FLANK PAIN COMPARISON: January 2020 FINDINGS: Axial CT images of the abdomen and pelvis were obtained without intravenous contrast. Coronal reformatted images were also obtained.This study was performed with techniques to keep radiation doses as low as reasonably achievable (ALARA). Individualized dose reduction techniques using automated exposure control or adjustment of mA and/or kV according to the patient's size were employed. Abdomen: There is bibasilar atelectasis or scarring. There are multiple bilateral renal masses that cannot be accurately characterized but may represent cysts. A 6 cm left renal mass contains small calcification and is partially improved from the prior exam. This favors a mildly complicated cyst. There is no right renal stone or hydronephrosis. There is mild left hydronephrosis and hydroureter secondary to a 3 mm proximal left ureteral stone at the L4 level. There is a gallstone in the gallbladder. The liver, spleen and pancreas have an unremarkable, unenhanced appearance. The infrarenal abdominal aorta measures up to 32 mm and previously measured 30 mm. The right common iliac artery measures 17 mm and previously measured 15 mm. There is mild vascular calcification. Pelvis: Images of the pelvis reveal no mass or abnormal fluid collection is identified. There is diverticulosis of the sigmoid colon. The appendix is normal. IMPRESSION: Mild left hydronephrosis and hydroureter to the level of a 3 mm proximal left ureteral stone. Bilateral renal masses may represent cysts. Borderline dilatation of the infrarenal abdominal aorta, increased from prior. Cholelithiasis. Reviewed, Interpreted and Dictated by Julian Bro III, MD Transcribed by Kendall Sher Authenticated and [facility]
== END ==
PROVIDERS: PCP Family Medicine; Visit Provider Physician Assistant
DX: R10.9 Unspecified abdominal pain (principal); R31.9 Hematuria, unspecified
CPT/HCPCS: 74176

== ENCOUNTER → 2022-08-02 13:33 | Outpatient (POV) | payer MEDICARE, SELFPAY | PROVIDERS: Visit Provider Dermatology | DX: Z00.00 Encounter for general adult medical examination without abnormal findings (principal) ==

== ENCOUNTER → 2022-09-06 12:52 | Outpatient (POV) | payer MEDICARE, SELFPAY | PROVIDERS: Visit Provider Dermatology | DX: Z00.00 Encounter for general adult medical examination without abnormal findings (principal) ==

== ENCOUNTER → 2023-04-20 09:44 | Outpatient (CLI) | payer MEDICARE, SELFPAY ==
--- NOTE | 2023-04-20 09:50 | XR_ITS ---
FINAL REPORT CLINICAL HISTORY: DISORDER OF NECK, chronic neck pain, grinding and cracking noises FINDINGS: CERVICAL SPINE Five views demonstrate no acute fracture. There is mild degenerative change with small osteophytes. There is no malalignment. IMPRESSION: Mild degenerative change with small osteophytes. Reviewed, Interpreted and Dictated by Julian Bro III, MD Transcribed by Joy León Authenticated and [facility]
== END ==
PROVIDERS: PCP Family Medicine; Visit Provider Family Medicine
DX: M53.82 Other specified dorsopathies, cervical region (principal)
CPT/HCPCS: 72050

== ENCOUNTER → 2023-04-28 07:16 | Outpatient (CLI) | payer MEDICARE, SELFPAY ==
--- NOTE | 2023-04-28 07:17 | CT_ITS ---
FINAL REPORT TECHNIQUE: Axial images were obtained from the lung apex to the mid abdomen by computed tomography. This study was performed with techniques to keep radiation doses as low as reasonably achievable (ALARA). Individualized dose reduction techniques using automated exposure control or adjustment of mA and/or kV according to the patient's size were employed. CLINICAL HISTORY: SCREENING FOR LUNG CANCER former smoker, quit 3 weeks ago, smoked 1/2 pk per day x 30 yrs copd COMPARISON: 01/24/2019 and 07/22/2022 FINDINGS: CHEST CT LOW DOSE CTDI vol (mGy): 2.90 DLP (mGy-cm): 104.46 There is no axillary adenopathy. There is no hilar or mediastinal adenopathy. The heart is normal in size. There is no pericardial or pleural effusion. Note is made of severe emphysema. There is a new, 5 mm left lower lobe nodule well seen on image 55. There is a new, 4 mm right upper lobe nodule well seen on image 45. There is a new, 4 mm right upper lobe nodule well seen on image 33. There is evidence of old granulomatous disease. Limited images of the upper abdomen reveal a hypodense lesion in the left kidney which does not appear to be a simple cyst. Calcifications may be within septa. Lesion is similar to CT abdomen pelvis dated 2021. IMPRESSION: Lung RADS category 2 S . Recommend 12 month follow-up low-dose chest CT. Bilateral pulmonary nodules as detailed above. Modifier S: Complex left renal lesion. Recommend renal mass protocol CT. Reviewed, Interpreted and Dictated by Angeles Glaser MD Transcribed by Saima Aguirre Authenticated and [facility]
== END ==
LOC: RAD 07:16
PROVIDERS: PCP Family Medicine; Visit Provider Family Medicine
DX: Z12.2 Encounter for screening for malignant neoplasm of respiratory organs (principal); Z87.891 Personal history of nicotine dependence
CPT/HCPCS: 71271

== ENCOUNTER 2023-05-08 16:57 | Emergency (ER) | payer MEDICARE, SELFPAY ==
[2023-05-08 17:15] VITALS: BP 144/76; PULSE 71; RESP 18; TEMP 36.9; O2SAT 98; BMI 19.7
--- NOTE | 2023-05-08 17:37 | EXP.UTC ---
Discharge Plan Disposition Patient Disposition: Home, Self-Care Condition: Good Prescriptions Prescriptions: No Action tamsulosin 0.4 MG capsule 0.4 mg PO DAILY finasteride 5 mg tablet 5 mg PO DAILY Referrals Follow up/Referrals: Armani López MD [Primary Care Provider] - See instructions Activity Restrictions/Add. Instructions Additional Instructions/Restrictions: Start oral steriods tomorrow Over the counter Benadryl as directed on package Follow up with your Family Doctor if no improvement or any worsening of symptoms Return if needed Straight to ER if any life threatening symptoms Clinical Impressions Clinical Impression: Allergic reaction to bee sting Instructions Patient Instructions: DI for General Allergic Reactions Discharge ED Provider: Beverly Mason [facility] HPI General Stated complaint: STUNG BY INSECT Mode of Arrival: Ambulatory Source of Information: Patient Limitations: No Limitations Time Seen by Provider: 05/08/23 17:37 Description of Symptoms (Recalled from Triage Doc. 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 05/08/23 05/08/23 Allergies Allergy/AdvReac Type Severity Reaction Status Date / Time Penicillins Allergy Unknown Verified 07/08/22 13:43 Worker's Comp Is this a Worker's Comp case?: No [facility] Disclaimer: The information contained in this section may have been updated after the patient was seen, as this information can be updated by other users. Social History Smoking Status: Current every day smoker tobacco type: cigarettes packs per day: 1 second hand exposure: Yes alcohol intake: current substance use type: denies use and other current occupational status: retired Travel in the last 8 weeks: None household members: spouse housing: house current occupational exposures/hazards: No caffeine: Yes ROS Obtained: Yes All systems reviewed & no additional complaints except as documented and Yes Systems reviewed as appropriate & no additional complaints except as documented ENT Ears, Nose, Mouth, and Throat: Reports system reviewed and no additional complaints, except as documented and Reports as per HPI Cardiovascular Cardiovascular: Reports system reviewed and no additional complaints, except as documented and Reports as per HPI Respiratory Respiratory: Reports system reviewed and no additional complaints, except as documented and Reports as per HPI Gastrointestinal Gastrointestingal: Reports system reviewed and no additional complaints, except as documented and as per HPI Musculoskeletal Musculoskeletal: Reports system reviewed and no additional complaints, except as documented and Reports as per HPI Integumentary/Breasts Skin/Breast: Reports system reviewed and no additional complaints, except as documented and Reports as per HPI Comments: pain swelling and redness to left forearm after getting stung earlier by wasp Physical Exam General General appearance: alert and in no apparent distress Respiratory Respiratory exam: Present normal lung sounds bilaterally; Absent respiratory distress or wheezes Cardiovascular Cardiovascular exam: Present regular rate, normal rhythm and normal heart sounds Abdominal Exam Abdominal exam: Present so
[2023-05-08 18:04] VITALS: BP 144/76; PULSE 71; RESP 18; TEMP 36.9; O2SAT 98
== END 2023-05-08 18:18 | disposition home or self-care (01) ==
PROVIDERS: Emergency Provider Nurse Practitioner; PCP Family Medicine
DX: T63.461A Toxic effect of venom of wasps, accidental (unintentional), initial encounter (principal); F17.210 Nicotine dependence, cigarettes, uncomplicated
CPT/HCPCS: 96372; 99204; 99212; G0463

== ENCOUNTER → 2023-05-18 10:09 | Outpatient (CLI) | payer MEDICARE, SELFPAY ==
--- NOTE | 2023-05-18 10:13 | CT_ITS ---
FINAL REPORT TECHNIQUE: Axial CT images of the abdomen were obtained without contrast. Coronal reformatted images were also obtained.This study was performed with techniques to keep radiation doses as low as reasonably achievable (ALARA). Individualized dose reduction techniques using automated exposure control or adjustment of mA and/or kV according to the patient''s size were employed. CLINICAL HISTORY: KIDNEY NEOPLASM FINDINGS: There is mild scarring in the lung bases. Moderate emphysema is identified. The liver has an unremarkable appearance, without evidence of mass. There are small gallstones in the gallbladder. There is no evidence of biliary ductal dilatation. The pancreas appears normal. The spleen size is within normal limits. There are multiple low-attenuation masses in both kidneys which can not be accurately characterized without contrast. Many of them likely represent cysts. There is a 6 cm mass in the upper pole of the left kidney which appears which cystic with septations and small calcifications, may represent complex cyst versus renal neoplasm. There is a 3.6 cm abdominal aortic aneurysm. 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 There is no evidence of adenopathy. No abnormal fluid collection is seen. IMPRESSION: Left renal cyst measures 6 cm which can not be accurately characterized without contrast, may represent complex cyst versus renal neoplasm. Renal mass protocol CT or renal MRI with contrast may be helpful. Cholelithiasis. Abdominal aortic aneurysm. Right common iliac artery aneurysms. Reviewed, Interpreted and Dictated by Julian Bro III, MD Transcribed by Saima Aguirre Authenticated and [facility]
== END ==
PROVIDERS: PCP Family Medicine; Visit Provider Family Medicine
DX: D41.00 Neoplasm of uncertain behavior of unspecified kidney (principal)
CPT/HCPCS: 74150

== ENCOUNTER → 2023-05-30 10:40 | Outpatient (CLI) | payer MEDICARE, SELFPAY ==
--- NOTE | 2023-05-30 10:45 | CT_ITS ---
FINAL REPORT TECHNIQUE: After the administration of oral and intravenous contrast, axial images were obtained through the abdomen and pelvis by computed tomography. The study was performed with techniques to keep radiation dose as low as reasonably achievable, (ALARA). Individual dose reduction techniques using automated exposure control or adjustment of mA and/or kV according to the patient's size were employed. CLINICAL HISTORY: . KIDNEY LESION COMPARISON: 05/18/2023 FINDINGS: Abdomen: The lung bases are clear. The liver parenchyma is homogeneous. The gallbladder is present. The pancreas and adrenals appear unremarkable. There is a small cyst in the anterior spleen measuring measuring 1.2 cm in diameter. Multiple renal cysts are again noted bilaterally, as seen on the prior CT of May 18. Postcontrast there is no significant enhancement in the 6 cm medial superior pole of the left kidney complex cyst. The abdominal aortic aneurysm noted on the prior CT is once again seen, measuring 3.5 x 3.2 cm in diameter, with either circumferential wall thickening or mural thrombus. There is mild ectasia and a small aneurysm in the right common iliac artery again noted. There is no free fluid or adenopathy. Pelvis: The appendix is not identified. The urinary bladder is unremarkable. There is no free fluid or adenopathy. IMPRESSION: No significant enhancement in the 6 cm complex cyst in the superior pole of the left kidney, suggesting benign cyst. No other renal cysts are seen to enhance. Abdominal aortic aneurysm once again identified, 3.5 x 3.2 cm in size. Reviewed, Interpreted and Dictated by Fransisco Diaz MD Transcribed by Rianna Herrera Authenticated and [facility]
[2023-05-30 11:27] LABS: Blood Urea Nitrogen 17 mg/dl (9-20); Estimated Glomerular Filt Rate 83 ml/min (>60); GFR (African American) 101 ML/MIN (>60)
== END ==
PROVIDERS: PCP Family Medicine; Visit Provider Family Medicine
DX: D41.00 Neoplasm of uncertain behavior of unspecified kidney (principal)
CPT/HCPCS: 36415; 82565; 84520; Q9967

== ENCOUNTER 2023-06-06 10:00 | Outpatient (RCR) | payer MEDICARE, SELFPAY ==
--- NOTE | 2023-05-11 15:16 | HMH.PTOPEV ---
PT Outpatient Evaluation Rehab PT Outpatient Evaluation Start: 05/11/23 14:55 Freq: Status: Active Protocol: Document 05/11/23 15:05 MALENA (Rec: 05/11/23 15:16 MALENA [id number]) E-signed By Vance Quinonez, PT Outpatient Therapy Subjective History Subjective History Pt reports h/o chronic neck pain for 'a couple years, but it seems like it's gotten worse over the last couple months.' Pt reports left>right sided neck pain, upper trap mm area, as well as referred pain into cervical muscles, and s/s that mimic cervicogenic COOPER's. Pt reports recent Xrays of cervical spine revealed one spurs and arthritis. Chief Complaint Pain,Stiff,Clicks,Catches/ Locks Symptom Type Ache,Dull,Stabbing Symptoms Relieved By Rest/Positioning,Heat, Prescription Meds Symptoms Aggravated By Physical Activity,Lifting Prior Functional Limitations Housework,Recreation Activity Current Functional Limitations Housework,Recreation Activity Symptom Description Constant but Variable Level of pain today (0-10) 4 Pain scale - at its best (0-10) 3 Pain scale - at its worst (0-10) 9 Cervical Eval Palpation Cervical Muscles R Cervical Paraspinal,L Cervical Paraspinal,R Suboccipital,L Suboccipital,R CT Junction,L CT Junction,R Upper Trapezius,L Upper Trapezius Cervical/Thoracic Palpation Findings Tenderness,Trigger Point Posture Head/C-Spine Posture Sitting Position Extended Head/C-Spine Posture Standing Position Extended Flexibility Deficits Upper Trapezius Muscle Length (R) Mild Tightness,(L) Mild Tightness Levaetor Scapulae Muscle Length (R) Mild Tightness,(L) Mild Tightness Scalene Group Muscle Length (R) Mild Tightness,(L) Mild Tightness Pectoralis Major Muscle Length (R) Moderate Tightness,(L) Moderate Tightness Pectoralis Minor Muscle Length (R) Moderate Tightness,(L) Moderate Tightness Passive Joint Mobility Cervical PIVM Dec: R OA L OA R AA L AA R C2/3
== END 2023-06-06 10:05 | disposition home or self-care (01) ==
LOC: PT 10:00
PROVIDERS: PCP Family Medicine; Visit Provider Family Medicine
DX: M50.30 Other cervical disc degeneration, unspecified cervical region (principal); M53.82 Other specified dorsopathies, cervical region
CPT/HCPCS: 20560; 97010; 97014; 97035; 97110; 97163; G0283

== ENCOUNTER 2024-02-06 10:10 | Outpatient (CLI) | payer MEDICARE, SELFPAY ==
[2024-02-06 10:33] LABS: Basophils % 0.5 % (0.1-2.0); Eosinophils # 0.2 K/mm3 (0.0-0.4); Eosinophils % 2.5 % (0.1-12.0); Hematocrit 44.1 % (42.0-52.0); Hemoglobin 14.2 g/dL (14.1-18.0); Lymphocytes # 1.7 K/mm3 (0.7-4.5); Lymphocytes % 23.8 % (10-50); Mean Corpuscular HGB Conc 32.3 g/dL (31.8-35.4); Mean Corpuscular Hemoglobin 32.9 pg (27.0-31.2); Mean Platelet Volume 7.9 fl (7.4-10.4); Monocytes # 0.5 K/mm3 (0.1-1.0); Monocytes % 6.4 % (1.7-9.3); Neutrophils # 4.7 K/mm3 (1.8-7.8); Neutrophils % 66.8 % (37.0-80.0); Platelet Count 283 K/mm3 (142-424); Red Blood Count 4.33 M/mm3 (4.60-6.20); Red Cell Distribution Width 13.1 % (11.5-17.5); White Blood Count 7.1 K/mm3 (4.8-10.8)
[2024-02-06 11:46] LABS: Alanine Aminotransferase 16 U/L (12-78); Albumin Level 3.5 g/dl (3.5-5.0); Albumin/Globulin Ratio 1.6 (1.1-1.8); Alkaline Phosphatase 46 U/L (38-126); Anion Gap 6.3 mEq/L (5-15); Aspartate Amino Transferase 27 U/L (17-59); Bilirubin,Total 0.2 mg/dl (0.2-1.3); Blood Urea Nitrogen 18 mg/dl (9-20); Calcium 9.4 mg/dl (8.4-10.2); Carbon Dioxide 33 mmol/L (22.0-30.0); Chloride 105 mmol/L (98-107); Estimated Glomerular Filt Rate 95 ml/min (>60); GFR (African American) 115 ML/MIN (>60); Globulin 2.2 g/dL (1.3-3.2); Glucose 125 mg/dl (74-100); Potassium 4.3 mmoL/L (3.5-5.1); Sodium 140 mmol/L (136-145); Total Protein,Serum 5.7 g/dl (6.3-8.2)
== END 2024-02-06 23:59 | disposition home or self-care (01) ==
LOC: LAB 10:12
PROVIDERS: PCP Family Medicine; Visit Provider Family Medicine
DX: R10.32 Left lower quadrant pain (principal)
CPT/HCPCS: 36415; 80053; 85025

== ENCOUNTER 2024-02-08 09:28 | Outpatient (CLI) | payer MEDICARE, SELFPAY ==
--- NOTE | 2024-02-08 09:33 | CT_ITS ---
FINAL REPORT TECHNIQUE: Axial imaging of the abdomen pelvis was obtained after the intravenous administration of contrast. Reformatted images were also obtained and reviewed. This study was performed with techniques to keep radiation doses as low as reasonably achievable (ALARA). Individualized dose reduction techniques using automated exposure control or adjustment of mA and/or kV according to the patient's size were employed. CLINICAL HISTORY: LLQ PAIN COMPARISON: 05/30/2023 FINDINGS: Abdomen: Lung bases are clear. The gallbladder demonstrates questionable tiny gallstones. Liver has an unremarkable CT appearance. There is a single splenic cyst. Otherwise, the spleen, pancreas and adrenal glands are unremarkable. There are bilateral renal cysts. Again seen is an abdominal aortic aneurysm, unchanged at 32 mm. No bowel obstruction or fluid collection is seen. Pelvis: The appendix is normal. Prostate is mildly enlarged. Pelvic bowel loops are unremarkable. No fluid collection or adenopathy is seen. IMPRESSION: No acute process. Stable abdominal aortic aneurysm. Reviewed, Interpreted and Dictated by Josh Sarmiento MD Transcribed by Ebony Chang Authenticated and [facility]
[2024-02-08] MEDS: SODIUM CHLORIDE 0.9% 10ML SYR (RAD ONLY) 10 ML IV (10:06)
[2024-02-08] MEDS: BARIUM SULFATE(READI-CAT2);450ML BOTTLE 450 ML PO (10:07)
[2024-02-08] MEDS: IOPAMIDOL-370 (76%);100ML BOTTLE 75 ML IV (10:07)
== END 2024-02-08 23:59 | disposition home or self-care (01) ==
LOC: RAD 09:29
PROVIDERS: PCP Family Medicine; Visit Provider Family Medicine
DX: R10.32 Left lower quadrant pain (principal)
CPT/HCPCS: 74177; Q9967

== ENCOUNTER 2024-05-09 10:07 | Outpatient (POV) | payer MEDICARE, SELFPAY | END 2024-05-09 23:59 | disposition home or self-care (01) | LOC: SC 10:07 | PROVIDERS: Visit Provider Specialist/Technologist | DX: Z00.00 Encounter for general adult medical examination without abnormal findings (principal) ==

== ENCOUNTER 2024-11-19 12:44 | Outpatient (CLI) | payer MEDICARE, SELFPAY ==
--- NOTE | 2024-11-19 | CT_ITS ---
FINAL REPORT CLINICAL HISTORY: SCREENING quit 1 year ago, 1/2 ppd x 55 years COMPARISON: 04/28/2023 FINDINGS: CTDI vol (mGy): 2.90 DLP: 113.[address] images of the chest were obtained using the low-dose protocol for screening. There is no evidence of mediastinal or hilar mass or adenopathy. No axillary mass or adenopathy is identified. On the lung window images, previously described nodules have resolved consistent with benign inflammatory nodules. There is a 2 mm nodule in the right lateral upper lobe on image 20 which is stable. This is best seen on MIP imaging. There is severe emphysematous change and scarring. Limited imaging of the upper abdomen demonstrates multiple renal masses which are likely cysts but are not well-characterized without contrast. IMPRESSION: Stable, 2 mm nodule in the lateral right upper lobe. Lung RADS category 2. Recommend 12 month followup low-dose CT for further evaluation. Reviewed, Interpreted and Dictated by Josh Sarmiento MD Transcribed by Ebony Chang Authenticated and [facility]
== END 2024-11-19 23:59 | disposition home or self-care (01) ==
LOC: RAD 12:44
PROVIDERS: PCP Family Medicine; Visit Provider Family Medicine
DX: Z87.891 Personal history of nicotine dependence (principal); Z12.2 Encounter for screening for malignant neoplasm of respiratory organs
CPT/HCPCS: 71271